=== PATIENT | male | born 1965 | race Caucasian/White ===

== ENCOUNTER 2017-04-09 08:09 | Day surgery (SDC) | payer OTHER ==
[2017-04-07 08:49] VITALS: BMI 33.2
[2017-04-09] MEDS ORDERED: MIDAZOLAM HCL 2 MG/2 ML SINGLE DOSE VIAL ONE ×3 (10:48→12:28)
[2017-04-09] MEDS ORDERED: DEXAMETHASONE SOD PHOSPHATE/PF 10 MG/ML SDV ONE (10:48)
[2017-04-09] MEDS ORDERED: ROPIVACAINE HCL 0.5% 30ML VIAL ONE (10:48)
[2017-04-09] MEDS ORDERED: ceFAZolin SODIUM 1 GM VIAL ONE (12:36)
[2017-04-09] MEDS ORDERED: PROPOFOL 20 ML ONE ×3 (12:51→13:35)
[2017-04-09] MEDS ORDERED: DEXAMETHASONE SOD PHOSPHATE 4 MG/1 ML VIAL ONE (13:09)
[2017-04-09] MEDS ORDERED: ONDANSETRON 4 MG/2 ML VIAL ONE (13:09)
--- NOTE | 2017-04-09 14:38 | OP ---
Operative Note - Note: Operative Date: 04/09/17 Pre-Operative Diagnosis: R Impingement syndrome Rotator Cuff Tear Operation: Right shoulder: 1. Neer decompression (acromioplasty & CA ligament release). 2. Audrey procedure (excision arthroplasty distal clavicle). 3. Rotator cuff repair Post-Operative Diagnosis: Same as Pre-op Surgeon: Wilton Johnson Crutching Contractor: Jose Johnson Anesthesiologist/PARKING ENFORCER: Magalys Nunez Anesthesia: General (Right inter-scalene block & sedation) Specimens Removed: Right distal clavicle Estimated Blood Loss (mls): 50 Fluid Volume Replaced (mls): 1,200 Operative Report Dictated: Yes
[2017-04-09 15:51] VITALS: TEMP 98
[2017-04-09 16:06] VITALS: BP 124/80; PULSE 82
[2017-04-10] MEDS ORDERED: VALSARTAN 80 MG TABLET (UD) PO SCH (10:00)
[2017-04-10] MEDS ORDERED: PANTOPRAZOLE 20 MG TABLET (FP) PO SCH (10:00)
--- NOTE | 2017-04-10 13:55 | OP ---
DATE OF OPERATION: 04/09/2017 BREAD DISTRIBUTOR: Jose Johnson MD. PREOPERATIVE DIAGNOSIS: Impingement syndrome right shoulder with rotator cuff tear. POSTOPERATIVE DIAGNOSIS: Impingement syndrome right shoulder with rotator cuff tear. OPERATION PERFORMED: 1. Excision arthroplasty clavicle. 2. Acromioplasty. 3. Transection of coracoacromial ligament. 4. Repair of rotator cuff. ANESTHESIA: Scalene block with conscious sedation. ANTIBIOTICS GIVEN: 2 g of Kefzol. OPERATION IN DETAIL: The patient correctly identified, placed supine on the operating table. The table was the adjusted into a beach chair position. The patient positioned to the side of the table enabling the right shoulder to extend fully. A routine draping with Betadine scrub solution, wiped off with alcohol, DuraPrep applied and a free drape of the right upper limb and approximately draping of the shoulder performed. The incision was made from the tip of the coracoid to the tip of the acromion. The sub-q tissue layers was developed and the Hohmann was placed deep to the underlying surface of the clavicle. The superior surface of the clavicle was cleared of soft tissue. A Hohmann was placed on the inferior aspect of the clavicle to lift the distal end of the clavicle superiorly. The AC joint was then identified. A beveled excision arthroplasty using a small oscillating saw was performed by resecting 1 cm of distal clavicle. Soft tissue was retained for the excision arthroplasty. At that point the muscle from the level of the AC joint was then developed that was in line with the fibers of the deltoid. They were . The CA ligament readily noted. This was then transected using a 15 blade. This transection extended from well within the confines of the shoulder joint right down past the edge of the CA ligament. This freed the subacromial space completely. With finger palpation it was clearly noted that the beaked acromion was digging into the surface of the rotator cuff. A blunt Hohmann was placed on the undersurface of the acromion and used to leave the humeral head distally out of harm's way. As the acromion was readily palpable a sharp Hohmann lifted the distal attachment tissue of the acromion and using an oscillating saw a formal excision arthroplasty of the clavicle, this was a partial acromioplasty parallel to the actual superior surface of the acromion performed to basically lift the roof of the shoulder joint. A neat transection performed. The tissues were washed out with saline thereafter. At that point, the rotator cuff was inspected. A small rotator cuff tear was noted. Two simple No. 1 Vicryl sutures were utilized to seal this tear completely. The edge of the tears were excised with a 15 blade knife to facilitate healthy bleeding tissue for biological repair. The wounds were thoroughly lavaged. Closure, the muscle was approximated with 1 Vicryl, sub-q 2-0 Vicryl, skin 3-0 Monocryl with Steri-Strips and light dressing was applied. A sling was applied. Operation went well with no complications. MD NAWAF Topete/[id number]
--- NOTE | 2017-04-15 15:41 | PATH ---
Surgical Pathology Report Patient Name: JAMAAL DELACRUZ Med. Rec. #: [id number] /Age/Gender: 1965 (Age: 51) / M Account: [id number] Location: [facility] Taken: 04/09/2017 Received: 04/09/2017 Reported: 04/15/2017 Physicians: Wilton Johnson M.D. Specimen(s) Received RIGHT DISTAL CLAVICLE Clinical History Impingement syndrome right shoulder Final Diagnosis DISTAL CLAVICLE, RIGHT, EXCISION: BONE AND CARTILAGE WITH NO PATHOLOGIC FINDINGS. Electronically Signed Shikha Schreiber M.D. Gross Description Received in formalin labeled "right distal clavicle," is a 2.1 x 1.7 x 1.7 cm irregular portion of bone, consistent with a portion of clavicle. Paintless Dent Repair Technician sections are submitted in one cassette, following decalcification. 04/14/201704/14/2017
== END 2017-04-09 16:06 | disposition home or self-care (01) ==
LOC: FASU 08:09
PROVIDERS: ATTEND Orthopaedic Surgery Orthopaedic Surgery of the Spine
PROC: 0PB90ZZ Excision of Right Clavicle, Open Approach (ICD-10-PCS; 2017-04-09)
PROC: 0LB10ZZ Excision of Right Shoulder Tendon, Open Approach (ICD-10-PCS; principal; 2017-04-09 13:12)
DX: M75.41 Impingement syndrome of right shoulder (principal); M75.112 Incomplete rotator cuff tear or rupture of left shoulder, not specified as traumatic
CPT/HCPCS: 88304-TC; 88311-TC